=== PATIENT | male | born 1960 | race Caucasian/White ===

== ENCOUNTER 2019-04-17 08:00 | Outpatient (CLI) | payer OTHER ==
--- NOTE | 2019-04-17 10:18 | XRAY Report ---
Reason: DYSPNEA R06.00 Procedure Date: 04/17/2019 Accession Number: [id number] / [id number] Procedure: XRS - Chest 2 View X-Ray CPT Code: 97628 FULL RESULT: EXAM: CHEST RADIOGRAPHY 2 VIEWS EXAM DATE: 04/17/2019. CLINICAL HISTORY: Dyspnea. COMPARISON: None. TECHNIQUE: PA and lateral views. FINDINGS: Lungs/Pleura: Normal vasculature. The lungs are clear. No pleural fluid or pneumothorax. Mediastinum: Normal cardiac and mediastinal contours. Bones: Mild degenerative changes of the spine. IMPRESSION: Normal 2-view chest radiography. RADIA
[2019-04-17 10:23] LABS: BASOPHILS # (AUTO) 0.1 10^3/uL (0.0-0.1); EOSINOPHILS # (AUTO) 0.1 10^3/uL (0.0-0.7); EOSINOPHILS % (AUTO) 2.2 %; HGB - HEMOGLOBIN 15.8 g/dL (14.0-18.0); LYMPHOCYTES % (AUTO) 40.5 %; MEAN CORPUSCULAR HEMOGLOBIN 32.4 pg (27.0-31.0); MEAN CORPUSCULAR HGB CONC 34.3 g/dL (32.0-36.0); MEAN CORPUSCULAR VOLUME 94.3 fL (80.0-94.0); MEAN PLATELET VOLUME 10.5 fL (7.4-11.4); MONOCYTES # (AUTO) 0.5 10^3/uL (0.0-1.0); MONOCYTES % (AUTO) 9.4 %; NEUTROPHILS # (AUTO) 2.3 10^3/uL (1.5-6.6); NEUTROPHILS % (AUTO) 46.9 %; PLT - PLATELET COUNT 231 10^3/uL (130-450); RED BLOOD COUNT 4.88 10^6/uL (4.70-6.10); RED CELL DISTRIBUTION WIDTH 11.8 % (12.0-15.0)
[2019-04-17 10:58] LABS: ALBUMIN 4.4 g/dL (3.2-5.5); ALBUMIN/GLOBULIN RATIO 1.4 (1.0-2.2); ALKALINE PHOSPHATASE 64 IU/L (42-121); ALT ALANINE AMINOTRANSFERASE 36 IU/L (10-60); AST ASPARTATE AMINOTRANSFERASE 29 IU/L (10-42); BUN - BLOOD UREA NITROGEN 22 mg/dL (6-20); CALCIUM 9.6 mg/dL (8.5-10.3); CARBON DIOXIDE - CO2 27 mmol/L (21-32); CHLORIDE 105 mmol/L (101-111); CHOL/HDL RATIO 4.3 (<5.0); CHOLESTEROL 231 mg/dL; CREATININE 0.9 mg/dL (0.6-1.2); GFR - MDRD 86 (>89); GLUCOSE 97 mg/dL (70-100); HDL CHOLESTEROL 54 mg/dL; LDL CHOLESTEROL,CALCULATED 155 mg/dL; LDL/HDL RATIO 2.9 (<3.6); SODIUM 141 mmol/L (135-145); TOTAL PROTEIN 7.5 g/dL (6.7-8.2); VLDL CHOLESTEROL 22 mg/dL
== END 2019-04-17 08:01 | disposition home or self-care (01) ==
LOC: LAB.S 08:00 → DI.S 08:01
PROVIDERS: ATTEND Internal Medicine
DX: Z00.00 Encounter for general adult medical examination without abnormal findings (principal); R25.1 Tremor, unspecified; R06.00 Dyspnea, unspecified
CPT/HCPCS: 36415; 71046; 80053; 80061; 83721; 84443; 85025

== ENCOUNTER 2022-09-20 07:53 | Outpatient (CLI) | payer OTHER ==
[2022-09-20 15:04] LABS: BASOPHILS # (AUTO) 0.1 10^3/uL (0.0-0.1); EOSINOPHILS # (AUTO) 0.1 10^3/uL (0.0-0.7); EOSINOPHILS % (AUTO) 1.8 %; HCT - HEMATOCRIT 50.8 % (42.0-52.0); HGB - HEMOGLOBIN 16.6 g/dL (14.0-18.0); LYMPHOCYTES # (AUTO) 2.2 10^3/uL (1.5-3.5); LYMPHOCYTES % (AUTO) 34.7 %; MEAN CORPUSCULAR HEMOGLOBIN 31.9 pg (27.0-31.0); MEAN CORPUSCULAR HGB CONC 32.7 g/dL (32.0-36.0); MEAN CORPUSCULAR VOLUME 97.7 fL (80.0-94.0); MEAN PLATELET VOLUME 10.1 fL (7.4-11.4); MONOCYTES # (AUTO) 0.5 10^3/uL (0.0-1.0); MONOCYTES % (AUTO) 7.7 %; NEUTROPHILS # (AUTO) 3.4 10^3/uL (1.5-6.6); NEUTROPHILS % (AUTO) 54.6 %; PLT - PLATELET COUNT 271 10^3/uL (130-450); WHITE BLOOD COUNT 6.3 x10^3/uL (4.8-10.8)
[2022-09-20 15:24] LABS: ALBUMIN 4.8 g/dL (3.2-5.5); ALBUMIN/GLOBULIN RATIO 1.5 (1.0-2.2); ALKALINE PHOSPHATASE 76 IU/L (42-121); ALT ALANINE AMINOTRANSFERASE 47 IU/L (10-60); AST ASPARTATE AMINOTRANSFERASE 39 IU/L (10-42); BUN - BLOOD UREA NITROGEN 19 mg/dL (6-20); CALCIUM 9.4 mg/dL (8.5-10.3); CARBON DIOXIDE - CO2 28 mmol/L (21-32); CHLORIDE 99 mmol/L (101-111); CHOL/HDL RATIO 5.2 (<5.0); CHOLESTEROL 271 mg/dL; CREATININE 1.1 mg/dL (0.6-1.2); GFR - MDRD 68 (>89); GLUCOSE 107 mg/dL (70-100); HDL CHOLESTEROL 52 mg/dL; LDL CHOLESTEROL,CALCULATED 190 mg/dL; LDL/HDL RATIO 3.7 (<3.6); POTASSIUM 4.6 mmol/L (3.5-5.0); SODIUM 136 mmol/L (135-145); TOTAL PROTEIN 7.9 g/dL (6.7-8.2); TRIGLYCERIDES 145 mg/dL; VLDL CHOLESTEROL 29 mg/dL
[2022-09-20 15:36] LABS: THYROID STIMULATING HORMONE 1.76 uIU/mL (0.34-5.60)
== END 2022-09-20 07:54 | disposition home or self-care (01) ==
LOC: LAB.S 07:53
PROVIDERS: ATTEND Registered Nurse
DX: Z79.899 Other long term (current) drug therapy (principal); Z13.220 Encounter for screening for lipoid disorders; Z12.5 Encounter for screening for malignant neoplasm of prostate
CPT/HCPCS: 36415; 80053; 80061; 83721; 84153; 84443; 85025

== ENCOUNTER 2023-05-17 09:17 | Outpatient (CLI) | payer OTHER ==
[2023-05-17] MEDS ORDERED: ALBUTEROL 1 PUFF INH STA (10:43)
== END 2023-05-17 09:18 | disposition home or self-care (01) ==
LOC: RT 09:17
PROVIDERS: ATTEND Registered Nurse
DX: R06.00 Dyspnea, unspecified (principal)
CPT/HCPCS: 94060; 94729

== ENCOUNTER 2023-12-12 07:27 | Outpatient (CLI) | payer OTHER ==
[2023-12-12 14:39] LABS: BASOPHILS % (AUTO) 0.8 %; EOSINOPHILS # (AUTO) 0.1 10^3/uL (0.0-0.7); EOSINOPHILS % (AUTO) 2.6 %; HCT - HEMATOCRIT 49.2 % (42.0-52.0); HGB - HEMOGLOBIN 15.7 g/dL (14.0-18.0); LYMPHOCYTES # (AUTO) 1.8 10^3/uL (1.5-3.5); LYMPHOCYTES % (AUTO) 36.5 %; MEAN CORPUSCULAR HEMOGLOBIN 31.3 pg (27.0-31.0); MEAN CORPUSCULAR HGB CONC 31.9 g/dL (32.0-36.0); MEAN PLATELET VOLUME 10.5 fL (7.4-11.4); MONOCYTES # (AUTO) 0.4 10^3/uL (0.0-1.0); MONOCYTES % (AUTO) 8.8 %; NEUTROPHILS # (AUTO) 2.6 10^3/uL (1.5-6.6); NEUTROPHILS % (AUTO) 51.1 %; PLT - PLATELET COUNT 245 10^3/uL (130-450); RED BLOOD COUNT 5.02 10^6/uL (4.70-6.10); RED CELL DISTRIBUTION WIDTH 11.9 % (12.0-15.0)
[2023-12-12 15:00] LABS: ALBUMIN 4.3 g/dL (3.2-5.5); ALBUMIN/GLOBULIN RATIO 1.7 (1.0-2.2); ALKALINE PHOSPHATASE 65 IU/L (42-121); ALT ALANINE AMINOTRANSFERASE 44 IU/L (10-60); AST ASPARTATE AMINOTRANSFERASE 32 IU/L (10-42); BILIRUBIN,TOTAL 0.5 mg/dL (0.2-1.0); BUN - BLOOD UREA NITROGEN 22 mg/dL (6-20); CALCIUM 9.7 mg/dL (8.5-10.3); CARBON DIOXIDE - CO2 28 mmol/L (21-32); CHLORIDE 107 mmol/L (101-111); CHOL/HDL RATIO 4.6 (<5.0); CHOLESTEROL 252 mg/dL; CREATININE 1.1 mg/dL (0.6-1.3); GFR - MDRD 68 (>89); GLUCOSE 96 mg/dL (74-104); HDL CHOLESTEROL 55 mg/dL; LDL CHOLESTEROL,CALCULATED 168 mg/dL; LDL/HDL RATIO 3.1 (<3.6); POTASSIUM 4.6 mmol/L (3.5-4.5); SODIUM 139 mmol/L (135-145); TOTAL PROTEIN 6.9 g/dL (6.4-8.9); TRIGLYCERIDES 147 mg/dL (48-352); VLDL CHOLESTEROL 29 mg/dL
== END 2023-12-12 07:28 | disposition home or self-care (01) ==
LOC: LAB.S 07:27
PROVIDERS: ATTEND Registered Nurse
DX: E78.5 Hyperlipidemia, unspecified (principal); Z79.899 Other long term (current) drug therapy; Z12.5 Encounter for screening for malignant neoplasm of prostate
CPT/HCPCS: 36415; 80053; 80061; 83721; 84153; 85025

== ENCOUNTER 2024-02-26 09:04 | Outpatient (CLI) | payer OTHER ==
--- NOTE | 2024-02-26 11:46 | CT Report ---
PROCEDURE: CT heart coronary calcium scoring without contrast TECHNIQUE: MDCT non-contrast cardiac gated images were obtained from the meghan through the inferior margin of the heart. Calcium score was obtained by post-processing with external software. Automated exposure control was used to reduce patient radiation dose. INDICATION: CAD screening, low or intermediate risk COMPARISON: None FINDINGS: Image quality: Diagnostic Agatston method: Total calcium score: 103.5 L main: 16.2 LAD: 0 LCX: 0 RCA: 87.4 Heart findings: Mitral annular calcifications: No significant calcifications. Aortic valve: Mild annular calcifications. Possible trace calcification on a leaflet (4/39). Chambers: No significant enlargement on this non-dynamic study. Pericardium: No effusion. Other findings (note the chest is incompletely imaged on this limited non-contrast study): Lungs and pleura: No pleural effusion. No actionable lung nodules. Mediastinum: No pathologic lymphadenopathy. Upper abdomen: Partially seen, unremarkable. Bones: No acute or suspicious abnormality. IMPRESSION: Coronary calcium scores indicate moderately increased risk. Incidentals: Possible trace aortic leaflet calcification, correlate with echocardiogram for any signs of stenosis. Coronary artery calcium scores have been identified as an independent risk factor for future acute co ronary syndromes and correlate with the quantity of coronary atherosclerotic plaque. However, they do not correlate directly with the degree of stenosis. A low score does not exclude a significant coron brent artery stenosis. Risk of future coronary events should be assessed with individual patient risk factors and medical hi story. Consider correlation with risk percentiles using the SCHULTZ (Multi-Ethnic Study of Atheroscleros is) calculator. CAC-DRS Categories: A0: 0, very low risk, consider repeat coronary calcium study every 3-7 years for surveillance. A1: 1-99, mildly increased risk, consider moderate-intensity statin A2: 100-299: moderately increased risk, consider moderate to high-intensity statin + ASA 81mg A3: >300: moderately to severely increased risk, consider high-intensity statin + ASA 81mg Reviewed by: Drew Lepe MD on 02/26/2024 11:45 AM PDT Approved by: Drew Lepe MD on 02/26/2024 11:45 AM PDT Station ID: [id number]
== END 2024-02-26 09:05 | disposition home or self-care (01) ==
LOC: DI 09:04
PROVIDERS: ATTEND Registered Nurse
DX: R06.09 Other forms of dyspnea (principal); Z82.49 Family history of ischemic heart disease and other diseases of the circulatory system; E78.5 Hyperlipidemia, unspecified
CPT/HCPCS: 93350

== ENCOUNTER 2024-02-26 09:05 | Outpatient (CLI) | payer OTHER ==
--- NOTE | 2024-02-26 09:31 | CARDIAC PROCEDURE NOTE ---
Stress Test Report Service Date: 02/26/24 Service Time: 09:30 Ordering Provider: Porsha Malone FNP-C Indication for Test: Assess exertional dyspnea. Significant Medical History: Feliz is referred for a treadmill stress echocardiogram today, to evaluate his chronic and mildly progressive, exertional dyspnea. He started having breathing problems approximately 8 years ago with some productive cough and nasal discharge, thought to have an allergic contribution. After trials of a few different agents he believes that he obtains symptomatic benefit from his current inhaled corticosteroid and bronchodilator use. Within a few months of starting on breathing medications he began to notice difficulty with shortness of breath upon initiation of exercise, at that time lasting around 30 seconds, followed by resolution. The exertional dyspnea has persisted at a gradually increasing level over the past several months. He had a treadmill stress echocardiogram performed at a different institution about 5 years ago, that he believes was entirely normal. He also had pulmonary function studies at [facility] last year that yielded normal baseline results for spirometry, lung volumes and DLCO, though with mild improvement in FEV1/FVC and XJE11-73% with acute bronchodilator inhalation. He remains quite active on a nearly daily basis, with walking, cardio workouts and golf, with a major difference being persistence of the initial shortness of breath now for as long as 90 seconds, whereas it used to be 30 seconds. As before, he feels that the dyspnea resolves as he continues exercising. He denies exertional chest discomfort or overall loss of stamina. He began taking lovastatin about a month ago, but questions whether it has caused him to have increased gas and loose stools. He would like to stop it for awhile to see if these concerns improve. Cardiac Risk Factors: Positive for hyperlipidemia (fasting lipids in 12/08 included TChol 252, LDL-C 168, HDL-C 55, TG 147, started on lovastatin thereafter), family history of coronary disease in father with onset in middle age; negative for hypertension, diabetes and cigarette smoking. Type of Stress Test: ETT with Echocardiography Procedure: -Exercise Treadmill Test- After signing informed consent, the patient underwent echo imaging at rest and then performed treadmill exercise using a Edgardo protocol. The patient exercised for 13 minutes 37 seconds and achieved a peak heart rate of 141 (89 percent predicted maximum heart rate for age), and an estimated workload of 14.6 METS. The test was terminated due to fatigue/shortness of breath. Resting heart rate: 59 Peak heart rate: 141 Normal response to exercise. Resting BP: 119/70 Peak BP: 180 systolic, 87 diastolic; Normal increase of systolic BP, with abnormal increase in diastolic BP, with exercise. Room air oxygen saturation during exercise ranged between 95-97%. Rhythm during exercise: Sinus rhythm throughout, without ectopy. Symptoms: He denied experiencing significant dyspnea early in exercise, though it became evident (as is typical) later in the exercise protocol; no description of any chest pressure/discomfort/pain. EKG at rest showed sinus bradycardia with possible left atrial abnormality, otherwise fully normal with normal/interpretable ST/T pattern. EKG at peak stress showed J-point depression with upsloping ST segments, NOT clearly meeting diagnostic EKG criteria for ischemia. In Recovery HR and BP rapidly and normally returned to near-baseline levels (HR 75, BP 132/70 at 5:00). Echo imaging, performed at rest and with stress, will be reported separately. IHarvey MD, was present throughout this treadmill stress study and supervised it in its entirety. Summary: 1) Exercise tolerance was markedly above average for age and sex, as evidenced by LOI of -59%. 2) Normal resting EKG. 3) Adequate level of exercise was achieved on this treadmill stress test. 4) Normal systolic BP response to exercise. 5) No ischemic changes by EKG criteria were seen at peak stress. 6) Echo image interpretation reveals normal left ventricular size, wall thickness and systolic function, with appropriate hyperdynamic augmentation of all segments with exercise, indicating no evidence of prior infarct or inducible ischemia. No significant valvular abnormality or elevation of estimated pulmonary artery systolic pressure seen on screening study. See separate report for more details. Conclusions and Recommendations: 1) Overall these are very reassuring treadmill stress echocardiogram results, with normal hemodynamic responses, exercise time well above average for age and no symptom, EKG or echocardiographic evidence of inducible ischemia. 2) Following the test's conclusion he reported that he usually starts his treadmill workouts at speed and incline that would be equivalent to stage 3-4 of the Edgardo protocol, so perhaps it is not surprising that he experiences a period of initial dyspnea at home, not experienced with the more gradual increase in speed/incline of the Edgardo protocol. 3) He is scheduled to follow this functional test today, with a structural assessment of possible coronary artery calcification with a quantitative, gated chest CT exam. We discussed that if he has a CAC score of 40 or greater, he would likely benefit (or surely if >100) with long-term daily administration of a moderate dose of one of the 2 contemporary, long-acting and high potency statins. I provided approval for him to stop lovastatin at this point, to see if his GI symptoms improve; these symptoms would not be likely with a daily dose of 10-20 mg atorvastatin or 5-10 mg rosuvastatin. I will comment that in the curr ent era there is almost no scenario where lovastatin should be used as the first prescribed statin, due to its short half-life, modest potency and potential for side effects.
== END 2024-02-26 09:06 | disposition home or self-care (01) ==
LOC: DI 09:05
PROVIDERS: ATTEND Registered Nurse
DX: R06.09 Other forms of dyspnea (principal); E78.5 Hyperlipidemia, unspecified; Z82.49 Family history of ischemic heart disease and other diseases of the circulatory system
CPT/HCPCS: 93350